=== PATIENT | female | born 1950 | race Caucasian/White ===

== ENCOUNTER 2024-06-21 07:51 | Emergency (ER) | payer MEDICARE, OTHER ==
[~2024-06-21] VITALS: Ht 160 cm; Wt 79.3 kg
[2024-06-21 08:48] VITALS: BP 152/90
[2024-06-21 09:01] VITALS: BP 160/137
[2024-06-21] MEDS ORDERED: oxyCODONE HCL ER 10 MG/TAB PO ONE (09:05)
[2024-06-21 09:15] VITALS: BP 150/91
[2024-06-21] MEDS ORDERED: oxyCODONE HCL 5 MG/TAB PO SCH (09:30)
[2024-06-21 09:31] VITALS: BP 146/80
[2024-06-21] MEDS ORDERED: OXYCODONE20 M1 PO (09:41)
[2024-06-21] MEDS ORDERED: NARCAN4 MG/0.1 M (09:44)
[2024-06-21 09:45] VITALS: BP 142/92
[2024-06-21 10:00] VITALS: BP 130/79
== END 2024-06-21 10:10 | disposition home or self-care (01) ==
LOC: ED 07:51
DX: Z76.0 Encounter for issue of repeat prescription (principal); G89.29 Other chronic pain; Z79.891 Long term (current) use of opiate analgesic

== ENCOUNTER 2024-07-19 18:45 | Emergency (ER) | payer MEDICARE, OTHER ==
[~2024-07-19] VITALS: Ht 160 cm; Wt 80.0 kg
[~2024-07-19 18:45] MED LIST: NARCAN4 MG/0.1 M; OXYCODONE20 M1 PO
[2024-07-19] MEDS ORDERED: KETOROLAC TROMETHAMINE 30 MG/ML SDV IV ONE (20:40)
[2024-07-19] MEDS ORDERED: SODIUM CHLORIDE 0.9% 1,000 ML IV ONE (20:40)
[2024-07-19] MEDS ORDERED: ONDANSETRON HCl 4 MG/2 ML SDV IV ONE (20:40)
[2024-07-19 21:12] LABS: URINE BILIRUBIN - DIPSTICK Negative (NEGATIVE); URINE BLOOD DIPSTICK Negative (NEGATIVE); URINE COLOR Straw; URINE GLUCOSE - DIPSTICK Negative (NEGATIVE); URINE KETONE Negative (NEGATIVE); URINE LEUK ESTERASE Small (NEGATIVE); URINE NITRITE - DIPSTICK Negative (Negative); URINE PROTEIN - DIPSTICK Negative (NEG-TRACE); URINE SPECIFIC GRAVITY 1.015; URINE UROBILINOGEN - DIPSTICK 0.2 E.U./dL (0.2)
[2024-07-19 21:14] LABS: BASO% 0.4 % (0-3); EOS% 0.6 % (0-8); HEMATOCRIT 42.1 % (37.0-47.0); HEMOGLOBIN 14.2 g/dl (12.0-16.0); IMMATURE GRANULOCYTES 0.8 % (0.0-5.0); LYMPH% 27.2 % (15-41); MEAN CELL VOLUME 90.7 fL CALC (80.0-100.0); MEAN CORPUSCULAR HGB 30.6 pG CALC (26.0-32.0); MEAN CORPUSCULAR HGB CONC 33.7 g/dL CAL (32.0-36.0); MONO% 6.8 % (2-13); NEUT# 5.02 thou/uL (2.00-7.15); NEUT% 64.2 % (42-76); RED BLOOD COUNT 4.64 mill/uL (4.20-5.60); RED CELL DISTRI WIDTH 12.9 % (11.5-15.5)
[2024-07-19 21:20] LABS: URINE BACTERIA FEW hpf; URINE SQUAMOUS EPITHELIAL CELL MODERATE EPI/hpf (0-FEW); URINE WBC 0-2 WBC/hpf (0-5)
[2024-07-19 21:23] LABS: CREATININE 0.7 mg/dL (0.5-1.0); POTASSIUM 3.9 mmol/l (3.5-5.1)
[2024-07-19] MEDS ORDERED: ONDANSETRON4 MG PO (22:00)
[2024-07-19 22:02] VITALS: BP 141/94
[2024-07-19 22:16] VITALS: BP 89/63
[2024-07-19 22:18] VITALS: BP 125/85
[2024-07-22] MEDS ORDERED: KEFLEX500 MG PO (11:37)
== END 2024-07-19 22:18 | disposition home or self-care (01) ==
LOC: ED 18:45
PROVIDERS: Family Medicine
DX: F11.23 Opioid dependence with withdrawal (principal); R42 Dizziness and giddiness; R11.2 Nausea with vomiting, unspecified
CPT/HCPCS: J2405